=== PATIENT | female | born 1980 | race African-American/Black ===

== ENCOUNTER 2017-01-12 00:16 | Inpatient (IN) | payer MEDICAID, OTHER ==
[2017-01-12] VITALS (19 sets, daily range): BP systolic 97–131; BP diastolic 48–72; PULSE 75–116; RESP 16–20; TEMP 97.6–98.4; O2SAT 98–100
[2017-01-12] MEDS ORDERED: CITRIC ACID-SODIUM CITRATE LIQ 30 ML UDC ONE (02:49)
--- NOTE | 2017-01-12 03:08 | HHI.HP ---
HPI Chief Complaint Evaluate for induction Travel History International Travel<30 Days: No Contact w/Intl Traveler<30Days: No Known Affected Area: No History of Present Illness HPI 36-year-old 001, IUP at 40.4 care, complicated by large for gestational age, hemoglobin A1c of 6.6, late care, GBS positive Patient presents for evaluation of and possible induction of labor. She reports irregular uterine tightening but denies painful contractions. She reports that her last baby was delivered 17 years ago and was over 9 pounds. She denies any shoulder dystocia with this delivery. She reports good movement. She denies any leaking of fluid or vaginal bleeding. She denies any other concerns or complaints tonight. Weeks Gestation: 40 Para: 1 : 2 History Past Medical History Narrative Medical Denies Obstetric History Obstetric History 001 Full-term 1 Past Surgical History Narrative Surgical Denies Family History Family History: Negative Social History Alcohol Use: No Tobacco Use: No Substance Abuse: No Review of Systems Except as stated in HPI: all other systems reviewed are Neg Physical Exam Narrative GENERAL: Well-nourished, well-developed patient. SKIN: Warm and dry. HEAD: Normocephalic and atraumatic. EYES: No scleral icterus. No injection or drainage. ENT: No nasal drainage noted. Mucous membranes pink. Airway patent. NECK: Supple, trachea midline. No JVD. CARDIOVASCULAR: Regular rate and rhythm without murmurs, gallops, or rubs. RESPIRATORY: Breath sounds equal bilaterally. No accessory muscle use. BREASTS: Deferred ABDOMEN/GI: Abdomen soft, non-tender, bowel sounds present, no rebound, no guarding Gravid GENITOURINARY: External Genitalia: intact and normal in appearance. Normal BUS. No cervical or vaginal masses noted. Physiologic discharge. Grossly normal rugate. SVE 1/50/-3, posterior. FHT's: Baseline FHR of 130s with moderate long-term variability, good accelerations, no decelerations noted. This is a reactive NST/category 1 FHR tracing EXTREMITIES: No cyanosis or edema. BACK: Nontender without obvious deformity. No CVA tenderness. NEUROLOGICAL: Awake and alert. Motor and sensory grossly within normal limits. Five out of 5 muscle strength in all muscle groups. Normal speech. Psychiatric: Grossly normal memory and affect Musculoskeletal: Grossly normal range of motion, gait, muscle strength Caprini VTE Risk Assessment Caprini VTE Risk Assessment: No/Low Risk (score <= 1) Caprini Risk Assessment Model Point Value = 1 Point Value = 2 Point Value = 3 Point Value = 5 Age 41-60 Minor surgery BMI > 25 kg/m2 Swollen legs Varicose veins or History of unexplained or recurrent spontaneous Oral contraceptives or hormone replacement Sepsis (< 1 month) Serious lung disease, including pneumonia (< 1 month) Abnormal pulmonary function Acute myocardial infarction Congestive heart failure (< 1 month) History of inflammatory bowel disease Medical patient at bed rest Age 61-74 Arthroscopic surgery Major open surgery (> 45 min) Laparoscopic surgery (> 45 min) Malignancy Confined to bed (> 72 hours) Immobilizing plaster cast Central venous access Age >= 75 History of VTE Family history of VTE Factor V Leiden Prothrombin [id number] Lupus anticoagulant Anticardiolipin antibodies Elevated serum homocysteine Heparin-induced thrombocytopenia Other congenital or acquired thrombophilia Stroke (< 1 month) Elective arthroplasty Hip, pelvis, or leg fracture Acute spinal cord injury (< 1 month) Prophylaxis Regimen Total Risk Factor Score Risk Level Prophylaxis Regimen 0-1 Low Early ambulation 2 Moderate Order ONE of the following: *Sequential Compression Device (SCD) *Heparin 5000 units SQ BID 3-4 Higher Order ONE of the following medications: *Heparin 5000 units SQ TID *Enoxaparin/Lovenox 40 mg SQ daily (WT < 150 kg, CrCl > 30 mL/min) *Enoxaparin/Lovenox 30 mg SQ daily (WT < 150 kg, CrCl > 10-29 mL/min) *Enoxaparin/Lovenox 30 mg SQ BID (WT < 150 kg, CrCl > 30 mL/min) AND/OR *Sequential Compression Device (SCD) 5 or more Highest Order ONE of the following medications: *Heparin 5000 units SQ TID (Preferred with Epidurals) *Enoxaparin/Lovenox 40 mg SQ daily (WT < 150 kg, CrCl > 30 mL/min) *Enoxaparin/Lovenox 30 mg SQ daily (WT < 150 kg, CrCl > 10-29 mL/min) *Enoxaparin/Lovenox 30 mg SQ BID (WT < 150 kg, CrCl > 30 mL/min) AND *Sequential Compression Device (SCD) Assessment/Plan Assessment and Plan Assessment/plan: 1. IUP at 40.4 2. Evaluation for induction: Patient presents for a postterm evaluation for induction of labor. Of note an ultrasound performed on 01/02/17 had an estimated weight of 4011 g however was estimated to be 37 weeks 1 day which is not consistent with an estimated of 4011 g weight. A lengthy discussion with the patient regarding induction of labor and the potential risks associated with her likely gestational diabetes and a large for gestational age/macrosomic fetus. Extrapolation from this ultrasound would estimated weight of approximately 4375 g. We discussed at length the risks associated with gestational diabetes and the increased risk of shoulder dystocia as well as the recommendations for delivery with estimated weight of 4500 g and diabetes. We discussed the risks of shoulder dystocia including but not limited to permanent and irreversible neurological injury to the fetus which may include the inability to use its arm and or brain damage or even . We discussed that there are maternal risks associated as well. We discussed the risks to delivery including but not limited to pain, infection, bleeding, injury to other organs like the bladder/bowel/nerves/ vessels, injury to the baby, need for repeat operation, need for blood transfusion, need for hysterectomy, wound infection/breakdown, and other possible complications. The patient would prefer a vaginal delivery if safely possible however is if estimated weight is over 4500 g she is willing for delivery. The patient would prefer to have a reassessment of weight prior to her decision. We discussed that if she entered active labor tonight we would need to make a decision based on the best information available. We discussed that in diabetic fetuses, the shoulders/abdomen is disproportionately large comparative to the size of the head. At this point we will plan to obtain additional information in the morning and proceed with or vaginal delivery based on the additional information. All the patient's questions were answered. We also discussed that ultrasound estimation of the estimated weight has a margin for error and that she weight would not be revealed until after delivery, in which case the weight may be greater than or even less then estimated by ultrasound evaluation. Of note the patient has a previous delivery of greater than 9 pounds however she was not diabetic at that point. She denies shoulder dystocia with that delivery. 3. GBS positive: Rx penicillin if proceed with induction of labor 4. Late care 5. Probable gestational diabetes with elevated bated hemoglobin A1c of 6.6 6. well-being: Reassuring testing with reactive NST/category 1 tracing, continue monitoring Yi Martinez MD Jan 12, 2017 03:08
[2017-01-12] MEDS: LACTATED RINGER'S 1000 ML INJ 1,000 ML IV SCH ×2 (03:41→05:57)
[2017-01-12] MEDS ORDERED: SODIUM CHLORID 0.9% 500 ML INJ 500 ML IV PRN (03:45)
[2017-01-12] MEDS ORDERED: CITRIC ACID-SODIUM CITRATE LIQ 30 ML UDC PO SCH (03:45)
[2017-01-12] MEDS ORDERED: MINERAL OIL 10 ML VIAL TOPICAL PRN (03:45)
[2017-01-12] MEDS ORDERED: LIDOCAINE HCL 1% 50 ML VIAL I-DERMAL PRN (03:45)
[2017-01-12] MEDS ORDERED: OXYTOCIN 30 UNITS-500ML PREMIX 500 ML IV ONE (03:45)
[2017-01-12] MEDS ORDERED: LIDOCAINE HCL 1% 50 ML VIAL INFIL PRN (03:45)
[2017-01-12] MEDS ORDERED: ZOLPIDEM TARTRATE 5 MG TAB PO ONE (04:00)
[2017-01-12] MEDS ORDERED: SODIUM CHLOR 0.9% 1000 ML INJ 1,000 ML IV PRN (04:01)
[2017-01-12 04:03] LABS: AUTOMATED NEUTROPHIL # 4.7 TH/MM3 (1.8-7.7); BASOPHIL % 0.3 % (0.0-2.0); EOSINOPHIL % 0.3 % (0.0-4.0); HEMATOCRIT 38.1 % (35.0-46.0); HEMO FLAGS DIFF FINAL; LYMPHOCYTE # 2.1 TH/MM3 (1.0-4.8); MEAN CELL VOLUME 79.8 FL (80.0-100.0); MEAN CORPUSCULAR HEMOGLOBIN 25.3 PG (27.0-34.0); MEAN CORPUSCULAR HGB CONC 31.7 % (32.0-36.0); MONO % 9.3 % (0.0-8.0); NEUT % 62.1 % (16.0-70.0); PLATELET COUNT 197 TH/MM3 (150-450); RED BLOOD COUNT 4.77 MIL/MM3 (4.00-5.30); RED CELL DISTRIBUTION WIDTH 14.8 % (11.6-17.2); WHITE BLOOD COUNT 7.6 TH/MM3 (4.0-11.0)
[2017-01-12 04:09] LABS: BLOOD, URINE NEG (NEG); COMMENT (UR) CULT NOT INDICATED; CULTURE IF INDICATED CULT NOT INDICATED; GLUCOSE,URINE 150 mg/dL (NEG); KETONE, URINE TRACE mg/dL (NEG); MUCUS URINE FEW /lpf (OCC); NITRITE,URINE NEG (NEG); SQUAMOUS EPITHELIAL CELL URINE 13 /hpf (0-5); URINE COLOR YELLOW (YELLW/STRAW)
--- NOTE | 2017-01-12 10:42 | HHI.PR ---
Subjective Remarks 36-year-old , IUP at 40.4. Patient came in last night for evaluation of induction of labor and was admitted this morning for suspected macrosomia. A repeat ultrasound obtained this morning indicated a fetus that is likely macrosomic with significant fat tissue noted on the head, neck, and abdomen. Ultrasound images were reviewed with the feed research technician and Dr. Bryant. Of note, the abdominal circumference and femur length were too large to be calculated in the estimated weight of this ultrasound. It appears that this is a macrosomic fetus that is likely over 4500 g in an untreated diabetic mother. As such Dr. Bryant would prefer to proceed with delivery as per ACOG recommendations. I spoke with the patient and discussed ultrasound findings with the mother. All the mother initially preferred a vaginal delivery, she is agreeable to delivery as her primary goal is a healthy . We again discussed the risks of shoulder dystocia and the recommendations for primary delivery due to her diabetes and suspected macrosomia. We will proceed with delivery as an add-on today unless she enters labor sooner. Charge nurse was notified and the remainder of the team will be notified. The risks benefits and alternatives to section were discussed at length and are documented as such in the H&P. Objective I/O 01/11/17 01/11/17 01/11/17 01/12/17 01/12/17 01/12/17 07:00 15:00 23:00 07:00 15:00 23:00 Intake Total 2000 ml Balance 2000 ml Intake IV Total 2000 ml Result Diagram: 01/12/17 0052 Yi Martinez MD Jan 12, 2017 10:42
[2017-01-12] MEDS ORDERED: LACTATED RINGER'S 1000 ML INJ 2,000 ML IV ONE (12:00)
[2017-01-12] MEDS ORDERED: ONDANSETRON HCL 4 MG/2 ML VIAL IV PUSH ONE (12:00)
[2017-01-12] MEDS ORDERED: GLYCOPYRROLATE 1 MG/5 ML SYRINGE IV PUSH ONE (12:00)
[2017-01-12] MEDS ORDERED: ceFAZolin INJ 1,000 MG VIAL IV ONE (12:00)
[2017-01-12] MEDS ORDERED: MORPHINE SULFATE PF 5 MG/10 ML VIAL ONE (12:00)
[2017-01-12] MEDS ORDERED: ePHEDrine/NS 25 MG/5 ML SYR IV ONE (12:00)
[2017-01-12] MEDS ORDERED: PHENYLEPH/NS 1000 MCG/10 ML SYR IV ONE (12:00)
[2017-01-12] MEDS ORDERED: OXYTOCIN 10 UNIT/ML AMP IV ONE (12:00)
[2017-01-12] MEDS ORDERED: SODIUM CHLORIDE 0.9% 20 ML VIAL IV ONE (12:00)
[2017-01-12] MEDS: LACTATED RINGER'S 1000 ML INJ 1,000 ML IV PRN ×2 (16:00→17:30)
[2017-01-12] MEDS ORDERED: ACETAMINOPHEN 1000 MG/100 ML 100 ML IV ONE (16:22)
[2017-01-12] MEDS ORDERED: EPIDURAL-DIPHENHYDRAMINE HCL 50 MG CAP PO PRN (16:40)
[2017-01-12] MEDS ORDERED: EPIDURAL-DO NOT ADMINISTER ANTICOAGULANTS PRN (16:40)
[2017-01-12] MEDS ORDERED: EPIDURAL-NO SYSTEMIC NARCOTICS PRN (16:40)
[2017-01-12] MEDS ORDERED: EPIDURAL-NALOXONE HCL 0.4 MG/ML AMP IV PUSH PRN (16:40)
[2017-01-12] MEDS ORDERED: EPIDURAL-DIPHENHYDRAMINE HCL 50 MG/ML VIAL IV PUSH PRN (16:40)
[2017-01-12] MEDS ORDERED: ePHEDrine/NS 25 MG/5 ML SYR ONE (18:06)
[2017-01-12] MEDS ORDERED: DEXAMETHASONE SOD PHOS 4 MG/ML VIAL ONE (18:12)
[2017-01-12] MEDS ORDERED: OXYTOCIN 30 UNITS-500ML PREMIX 500 ML ONE (19:06)
[2017-01-13 00:30] VITALS: RESP 16
[2017-01-13] MEDS ORDERED: KETOROLAC TROMETHAMINE 30 MG/ML (IVP) VIAL IV PUSH PRN (00:30)
[2017-01-13] MEDS ORDERED: oxyCODONE/ACETAMINOPHEN 5 MG/325 MG TAB PO PRN (00:30)
[2017-01-13] MEDS ORDERED: ONDANSETRON HCL 4 MG/2 ML VIAL IV PUSH PRN (00:30)
[2017-01-13] MEDS: LACTATED RINGER'S 1000 ML INJ 1,000 ML IV SCH (03:41)
[2017-01-13 05:00] VITALS: RESP 16
[2017-01-13 06:15] VITALS: BP 102/59; PULSE 74; RESP 18; TEMP 98.1
--- NOTE | 2017-01-13 07:52 | HHI.OB ---
Subjective Post Operative Day: 1 Remarks doing well , keith diet , ambulating , + BF Objective Vitals/I&O Vital Signs Date Time Temp Pulse Resp B/P (MAP) Pulse Ox O2 Delivery O2 Flow Rate FiO2 01/13/17 06:15 98.1 01/13/17 06:15 74 18 102/59 (73) 01/13/17 05:00 16 01/13/17 00:30 16 01/12/17 23:40 98.4 75 18 107/60 (76) 98 01/12/17 22:00 16 01/12/17 19:35 83 18 100/59 (73) 01/12/17 19:35 98.1 98 01/12/17 19:00 84 20 103/51 (68) 100 01/12/17 18:45 97.6 105 105/53 (70) 01/12/17 18:45 18 100 01/12/17 18:30 107/55 (72) 01/12/17 18:26 93 18 97/51 (66) 98 01/12/17 18:16 113/58 (76) 01/12/17 18:10 93 18 100 01/12/17 18:10 103/59 (74) 01/12/17 17:55 114 20 110/48 (68) 100 01/12/17 17:39 97.9 100 01/12/17 17:39 116 20 109/52 (71) 01/12/17 14:30 18 01/12/17 12:20 18 01/12/17 12:19 87 131/72 (91) 01/12/17 09:33 103 122/65 (84) 01/12/17 09:32 98.0 18 Result Diagram: 01/12/17 0052 Objective Remarks GENERAL: Well-nourished, well-developed patient. CARDIOVASCULAR: Regular rate and rhythm without murmurs, gallops, or rubs. RESPIRATORY: Breath sounds equal bilaterally. No accessory muscle use. ABDOMEN/GI: Abdomen soft, non-tender, bowel sounds present. Incision: Clean, dry and intact.silver bandage intact Fundus: Firm, non-tender at umbilicus. GENITOURINARY: Light to moderate bleeding. EXTREMITIES: No cyanosis or edema, non-tender, without signs of DVT. Medications and IVs Current Medications Medications (Trade) Dose Ordered Sig/Alex Route Start Time Stop Time Status Last Admin Lactated Ringer's 1,000 ml @ 125 mls/hr Q8H IV 01/12/17 03:41 01/12/17 05:57 Lactated Ringer's 1,000 ml @ 3,000 mls/hr Q20M PRN IV 01/12/17 03:41 01/12/17 16:00 Sodium Chloride 1,000 ml @ 100 mls/hr Q10H PRN IV 01/12/17 04:01 (Xylocaine 1% Inj (50 ml)) 0.1 ml UNSCH X1 PRN I-DERMAL 01/12/17 03:45 01/15/17 03:44 (Bicitra Liq) 30 ml CENSUS TAKER PO 01/12/17 03:45 01/16/17 03:44 01/12/17 16:21 (fentaNYL INJ) 50 mcg Q1H PRN IV PUSH 01/12/17 03:45 (fentaNYL INJ) 100 mcg Q1H PRN IV PUSH 01/12/17 03:45 (Xylocaine 1% Inj (50 ml)) 10 ml UNSCH X1 PRN INFIL 01/12/17 03:45 01/14/17 03:44 (Muri-Lube Oil) 10 ml UNSCH PRN TOPICAL 01/12/17 03:45 Miscellaneous Information NO SYSTEMIC NARCOTICS TO BE GIVEN FO... UNSCH PRN .XX 01/12/17 16:40 01/13/17 16:39 (Narcan Inj) 0.4 mg UNSCH PRN IV PUSH 01/12/17 16:40 01/13/17 16:39 (Benadryl Inj) 25 mg Q6H PRN IV PUSH 01/12/17 16:40 01/13/17 16:39 (Benadryl) 50 mg Q6H PRN PO 01/12/17 16:40 01/13/17 16:39 Miscellaneous Information ALL NURSING DEPARTMENTS UNSCH PRN .XX 01/12/17 16:40 01/13/17 16:39 (Percocet 5-325 Mg) 1 tab Q4H PRN PO 01/13/17 00:30 (Percocet 5-325 Mg) 2 tab Q4H PRN PO 01/13/17 00:30 (Toradol Inj) 30 mg Q6H PRN IV PUSH 01/13/17 00:30 01/13/17 06:04 (Zofran Inj) 4 mg Q6H PRN IV PUSH 01/13/17 00:30 01/13/17 06:04 Assessment/Plan Assessment and Plan Assessment/plan: Advance postop care progressively , up OOB ambulate , advance diet Omar Bryant II, MD Jan 13, 2017 07:52
[2017-01-13 08:20] VITALS: BP 115/69; PULSE 78; RESP 18; TEMP 97.7
[2017-01-13 12:00] VITALS: BP 109/65; PULSE 83; RESP 16; TEMP 98
--- NOTE | 2017-01-13 16:39 | MP ---
cc: CHUN BRYANT MD DATE OF SURGERY: 01/12/2017. PREOPERATIVE DIAGNOSIS: Suspected macrosomia. POSTOPERATIVE DIAGNOSIS: Suspected macrosomia. OPERATION: Low transverse section. SURGEON: Chun Bryant MD. ANESTHESIA: Spinal. PREOPERATIVE NOTE: The patient is a 36-year-old black female with history of macrosomic baby in the past with ultrasound findings done on this fetus today showing excessively large amount of fat deposit in the baby's neck, chest and shoulder area with an estimated weight of 4375 grams but with this much fat deposit in the upper neck and torso it was felt the risk for shoulder dystocia was quite high and opted for transabdominal delivery. DESCRIPTION OF THE PROCEDURE IN DETAIL: The patient was taken to the operating room and placed in the supine position on the operating room table. After adequate spinal anesthesia was administered, she was prepped and draped for abdominal surgery. A Pfannenstiel incision was made in the lower abdomen and carried to the fascia, sharply the fascia was dissected off the rectus muscle and the rectus split in the midline. The peritoneal cavity was entered sharply. The incision was extended superiorly and inferiorly. The incision was stretched open. The bladder blade was placed in the lower edge of the incision. The visceral peritoneum was reflected off the lower uterine segment and placed under the bladder blade. A transverse hysterotomy was made and extended bluntly bilaterally. A female infant was delivered at 4:56 p.m. with weight 4330 grams, Apgars of 8 and 9, that is 9 pounds, 9 ounces. There were no complications of delivery. Cord blood was obtained. Placenta manually extracted. The hysterotomy was closed in a running layer of 0 chromic followed by imbricating suture of the same. The bladder was reapproximated with a running layer of 2-0 Vicryl. The uterus was elevated and blood suctioned from the cul-de-sac and gutters. The ovaries and tubes were within normal limits. The parietal peritoneum was closed in a running layer of 2-0 Vicryl. The rectus muscle was reapproximated with stick ties of chromic. The fascia was then closed in a running layer of 0 Vicryl. The subcutaneous tissue was reapproximated with 3-0 plain catgut suture and the skin closed with 3-0 Monocryl subcuticular stitch. The large silver based seven-day dressing was placed on the patient with good adhesive contact. The estimated blood loss was 500 cc. There were no complications. Sponge and needle counts were correct x 2 and the patient went to recovery in stable condition. MD JB Vallecillo/TITUS /5:43 PM /4:26 PM
[2017-01-13] MEDS: oxyCODONE/ACETAMINOPHEN 5 MG/325 MG TAB PO PRN ×2 (18:58→23:10)
[2017-01-13] MEDS ORDERED: ACETAMINOPHEN 325 MG TAB PO PRN (19:30)
[2017-01-13] MEDS ORDERED: DOCUSATE SODIUM 50 MG/SENNA 8.6 MG TAB PO PRN (19:30)
[2017-01-13] MEDS ORDERED: SIMETHICONE 80 MG CHEWABLE TAB PO PRN (19:30)
[2017-01-13] MEDS: IBUPROFEN 600 MG TAB PO PRN (23:09)
[2017-01-14] MEDS: IBUPROFEN 600 MG TAB PO PRN ×2 (08:49→15:44)
[2017-01-14] MEDS: oxyCODONE/ACETAMINOPHEN 5 MG/325 MG TAB PO PRN ×2 (08:49→15:44)
[2017-01-14 08:50] VITALS: BP 108/77; PULSE 94; RESP 18; TEMP 98
[2017-01-14] MEDS ORDERED: OXYC1TAB63 PO (10:29)
[2017-01-14] MEDS ORDERED: IBUP-232 PO (10:29)
--- NOTE | 2017-01-14 10:29 | HHI.DCPOC ---
Discharge Care Plan Diagnosis: (1) delivery, delivered, current hospitalization Report Symptoms to Your Doctor -Temperature above 100.5 degrees -Redness, of incision or excessive or foul smelling drainage -Unusual pain or calf pain -Increased vaginal bleeding -Painful or difficulty urinating -Feelings of extreme sadness or anxiety after 2 weeks Goals to Promote Your Health * To prevent worsening of your condition and complications * To maintain your health at the optimal level Directions to Meet Your Goals Take your medications as prescribed Follow your dietary instruction Follow activity as directed Ensure plenty of rest for recovery Drink fluids for hydration Keep your appointments as scheduled Take your immunizations and boosters as scheduled If your symptoms worsen call your PCP, if no PCP go to Urgent Care Center or Emergency Room Smoking is Dangerous to Your Health. Avoid second hand smoke Call the 24-hour crisis hotline for domestic abuse at Jeff Tellez MD R2 Jan 14, 2017 10:29
--- NOTE | 2017-01-14 11:37 | HHI.OB ---
Subjective Remarks 36 year old female s/p C/S at 40/4 wks gestation, POD 2. AFVSS. Patient reports she is feeling well. Bleeding is decreasing and pain is well- controlled. She is breast feeding and bonding well with baby. Ambulating without difficulties. She is tolerating a diet without nausea or vomiting. She has had a bowel movement. She has passed gas. Denies chest pain, dysuria, shortness of breath, or calf pain. (Jeff Tellez MD R2) Remarks Patient seen and evaluated with resident under direct supervision, agree with assessment and plan. (Enzo Mai MD) Objective Vitals/I&O Vital Signs Date Time Temp Pulse Resp B/P (MAP) Pulse Ox O2 Delivery O2 Flow Rate FiO2 01/14/17 08:50 94 18 108/77 (87) 01/14/17 08:50 98.0 01/13/17 12:00 98.0 83 16 109/65 (80) (Jeff Tellez MD R2) Result Diagram: 01/12/17 0052 Objective Remarks GENERAL: Well-nourished, well-developed patient. CARDIOVASCULAR: Regular rate and rhythm without murmurs, gallops, or rubs. RESPIRATORY: Breath sounds equal bilaterally. No accessory muscle use. ABDOMEN/GI: Abdomen soft, non-tender, bowel sounds present. Incision: Clean, dry and intact.silver bandage intact Fundus: Firm, non-tender at umbilicus. GENITOURINARY: Light to moderate bleeding. EXTREMITIES: No cyanosis or edema, non-tender, without signs of DVT. Medications and IVs Current Medications Medications (Trade) Dose Ordered Sig/Alex Route Start Time Stop Time Status Last Admin Lactated Ringer's 1,000 ml @ 125 mls/hr Q8H IV 01/12/17 03:41 01/12/17 05:57 Lactated Ringer's 1,000 ml @ 3,000 mls/hr Q20M PRN IV 01/12/17 03:41 01/12/17 16:00 Sodium Chloride 1,000 ml @ 100 mls/hr Q10H PRN IV 01/12/17 04:01 (Xylocaine 1% Inj (50 ml)) 0.1 ml UNSCH X1 PRN I-DERMAL 01/12/17 03:45 01/15/17 03:44 (Bicitra Liq) 30 ml LICENSED CLINICIAN PO 01/12/17 03:45 01/16/17 03:44 01/12/17 16:21 (fentaNYL INJ) 50 mcg Q1H PRN IV PUSH 01/12/17 03:45 (fentaNYL INJ) 100 mcg Q1H PRN IV PUSH 01/12/17 03:45 (Muri-Lube Oil) 10 ml UNSCH PRN TOPICAL 01/12/17 03:45 (Percocet 5-325 Mg) 1 tab Q4H PRN PO 01/13/17 00:30 01/14/17 08:49 (Percocet 5-325 Mg) 2 tab Q4H PRN PO 01/13/17 00:30 (Zofran Inj) 4 mg Q6H PRN IV PUSH 01/13/17 00:30 01/13/17 06:04 (Tylenol) 650 mg Q6H PRN PO 01/13/17 19:30 (Motrin) 600 mg Q6H PRN PO 01/13/17 19:30 01/14/17 08:49 (Mylicon Chew) 80 mg QID PRN PO 01/13/17 19:30 01/13/17 23:10 (Gricel-Colace) 2 tab Q12H PRN PO 01/13/17 19:30 01/13/17 23:05 (Jeff Tellez MD R2) Assessment/Plan Assessment and Plan 36 yo female s/p C/S, POD 2 - AFVSS - Continue routine care - Motrin and Percocet PRN pain - Encourage OOB - Pelvic rest x 6 wks. Will need 1 week incision check. - Contraception: Declines Depo and OCP; not currently in relationship and does not plan to become sexually active. [employer]GE [employer] at incision check. - Home today (Jeff Tellez MD R2) Jeff Tellez MD R2 Jan 14, 2017 11:37 Enzo Mai MD Jan 20, 2017 10:13
[2017-01-14] MEDS: LACTATED RINGER'S 1000 ML INJ 1,000 ML IV SCH (11:41)
== END 2017-01-14 17:20 | disposition home or self-care (01) | DRG 766 ==
LOC: H2EB 00:16 → H1EA 19:17
PROVIDERS: ADMIT Obstetrics & Gynecology; ATTEND Obstetrics & Gynecology
PROC: 10D00Z1 Extraction of Products of Conception, Low, Open Approach (ICD-10-PCS; principal; 2017-01-12)
DX: O36.63X0 Maternal care for excessive fetal growth, third trimester, not applicable or unspecified (principal); O48.0 Post-term pregnancy; Z37.0 Single live birth; Z3A.40 40 weeks gestation of pregnancy; O99.824 Streptococcus B carrier state complicating childbirth
CPT/HCPCS: 59025; 76816; 76819; 81001; 85025; 86900; 86901; J0131; J0690; J1100; J1885; J2274; J2370; J2405; J2590; J7120

== ENCOUNTER 2017-01-16 18:13 | Emergency (ER) | payer MEDICAID, OTHER ==
[~2017-01-16] VITALS: Ht 172.7 cm; Wt 100.0 kg
[~2017-01-16 18:13] MED LIST: IBUP-232 PO; OXYC1TAB63 PO
[2017-01-16 18:15] VITALS: BP 131/63; PULSE 80; RESP 18; TEMP 99.2; O2SAT 99
[2017-01-16 20:00] VITALS: BP 135/77; PULSE 62; RESP 16; O2SAT 99
--- NOTE | 2017-01-16 20:28 | PD ---
HPI Chief Complaint: Numbness/Tingling Time Seen by Provider: 20:16 Travel History International Travel<30 days: No Contact w/Intl Traveler<30days: No Traveled to known affect area: No History of Present Illness HPI 36-year-old Afro-[place] female presents to the emergency Department 5 days post of her second with complaints of bilateral lower extremity edema with some tingling in the right foot. Patient denies fever, chills, shortness of breath, cough, or significant abdominal pain. Patient does feel she is a little constipated, but otherwise feels normal and the abdomen. She states she is eating well. Patient is currently breast-feeding her daughter. Patient denies any significant pain in the lower extremities. Patient has no history of edema in the past. Patient had no swelling with either. She has no known drug allergies. PFSH Past Medical History Medical History: Denies Significant Hx ?: Not Past Surgical History Surgical History: No Previous Surgery Section: Yes Social History Alcohol Use: No Tobacco Use: No Substance Use: No Allergies-Medications (Allergen,Severity, Reaction): Coded Allergies: No Known Allergies (Verified Allergy, Unknown, 01/16/17) Reported Meds & Prescriptions Reported Meds & Active Scripts Active Ibuprofen 600 Mg Tab 600 Mg PO Q6H PRN Oxycodone-Acetaminophen 5-325 mg Tab 1 Tab PO Q4H PRN Review of Systems Except as stated in HPI: all other systems reviewed are Neg Musculoskeletal: Positive: Edema, No: Myalgias, Arthralgias, Limited ROM, Weakness, Cramping, Pain Neurologic: Positive: Paresthesia (of the right foot) Physical Exam Narrative GENERAL: Patient appears in no acute distress. SKIN: Warm and dry. Normal color. Normal turgor. wound appears healing well without dehiscence or drainage. No signs of cellulitis noted. HEAD: Atraumatic. Normocephalic. EYES: Pupils equal and round. No scleral icterus. No injection or drainage. ENT: No nasal bleeding or discharge. Mucous membranes pink and moist. Pharynx is clear. Airway is patent. NECK: Trachea midline. No JVD. Neck is supple and nontender. CARDIOVASCULAR: Regular rate and rhythm. No murmurs gallops or rubs. RESPIRATORY: No accessory muscle use. Clear to auscultation. Breath sounds equal bilaterally. GASTROINTESTINAL: Abdomen soft, mild suprapubic tenderness at the incision site , nondistended. Normal bowel sounds are noted throughout all quadrants. No CVA tenderness. Hepatic and splenic margins not palpable. MUSCULOSKELETAL: Extremities without clubbing, cyanosis, however, patient has 2 + bilateral nonpitting edema. No obvious deformities. NEUROLOGICAL: Awake and alert. No obvious cranial nerve deficits. Motor grossly within normal limits. Five out of 5 muscle strength in the arms and legs. Normal speech. PSYCHIATRIC: Appropriate mood and affect; insight and judgment normal. Data Data Last Documented VS Vital Signs Date Time Temp Pulse Resp B/P (MAP) Pulse Ox O2 Delivery O2 Flow Rate FiO2 01/16/17 20:15 99 Room Air 01/16/17 20:00 62 16 135/77 (96) 01/16/17 18:15 99.2 Orders Orders Electrocardiogram (01/16/17 20:29) B-Type Natriuretic Peptide (01/16/17 20:29) Complete Blood Count With Diff (01/16/17 20:29) Comprehensive Metabolic Panel (01/16/17 20:29) Prothrombin Time / Inr (Pt) (01/16/17 20:29) Act Partial Throm Time (Ptt) (01/16/17 20:29) Chest, Single Ap (01/16/17 20:29) Ecg Monitoring (01/16/17 20:29) Iv Access Insert/Monitor (01/16/17 20:29) Oximetry (01/16/17 20:29) Oxygen Administration (01/16/17 20:29) Sodium Chloride 0.9% Flush (Ns Flush) (01/16/17 20:30) Us Leg Venous Doppler Bilat (01/16/17 20:29) Labs Laboratory Tests Test 01/16/17 20:30 White Blood Count 7.8 TH/MM3 Red Blood Count 3.72 MIL/MM3 Hemoglobin 9.5 GM/DL Hematocrit 29.6 % Mean Corpuscular Volume 79.7 FL Mean Corpuscular Hemoglobin 25.6 PG Mean Corpuscular Hemoglobin Concent 32.1 % Red Cell Distribution Width 14.4 % Platelet Count 286 TH/MM3 Mean Platelet Volume 8.6 FL Neutrophils (%) (Auto) 57.8 % Lymphocytes (%) (Auto) 31.9 % Monocytes (%) (Auto) 5.0 % Eosinophils (%) (Auto) 4.4 % Basophils (%) (Auto) 0.9 % Neutrophils # (Auto) 4.5 TH/MM3 Lymphocytes # (Auto) 2.5 TH/MM3 Monocytes # (Auto) 0.4 TH/MM3 Eosinophils # (Auto) 0.3 TH/MM3 Basophils # (Auto) 0.1 TH/MM3 CBC Comment DIFF FINAL Differential Comment Prothrombin Time 9.7 SEC Prothromb Time International Ratio 0.9 RATIO Activated Partial Thromboplast Time 28.4 SEC Blood Urea Nitrogen 8 MG/DL Creatinine 0.93 MG/DL Random Glucose 81 MG/DL Total Protein 6.2 GM/DL Albumin 2.4 GM/DL Calcium Level 8.3 MG/DL Alkaline Phosphatase 85 U/L Aspartate Amino Transf (AST/SGOT) 42 U/L Alanine Aminotransferase (ALT/SGPT) 49 U/L Total Bilirubin 0.5 MG/DL Sodium Level 141 MEQ/L Potassium Level 3.5 MEQ/L Chloride Level 106 MEQ/L Carbon Dioxide Level 25.5 MEQ/L Anion Gap 10 MEQ/L Estimat Glomerular Filtration Rate 83 ML/MIN B-Type Natriuretic Peptide 176 PG/ML [facility] Medical Decision Making Medical Screen Exam Complete: Yes Emergency Medical Condition: Yes Medical Record Reviewed: Yes Differential Diagnosis Lower extremity edema. DVT. Fluid overload. 5 days . Narrative Course Patient appears medically stable at time of exam. Labs ordered including CBC, CMP, proBNP, urinalysis. EKG and chest x-ray are ordered. Ultrasound both lower extremities is ordered. CBC shows mild anemia with a hemoglobin of 9.5 otherwise unremarkable. Coagulation studies are unremarkable except for a PT of 9.7. CMP is unremarkable except for total protein of 6.2 and albumin of 2.4. BNP is 176. Chest x-ray was unremarkable per radiologist. Ultrasound lower extremities shows no DVT. Patient was treated with Lasix 10 mg daily for the next 7 days. Patient should follow-up with her primary care physician or [facility] next 3 days to ensure improvement. Recommend stool softener for constipation. Patient can follow up with worsening symptoms develop as needed. Diagnosis Primary Impression: Bilateral edema of lower extremity Referrals: Primary Care Physician 3 days Patient Instructions: General Instructions, Leg Edema (ED) Additional Instructions: CBC shows mild anemia with a hemoglobin of 9.5 otherwise unremarkable. Coagulation studies are unremarkable except for a PT of 9.7. CMP is unremarkable except for total protein of 6.2 and albumin of 2.4. BNP is 176. Chest x-ray was unremarkable per radiologist. Ultrasound lower extremities shows no DVT. Patient was treated with Lasix 10 mg daily for the next 7 days. Patient should follow-up with her primary care physician or [facility] next 3 days to ensure improvement. Recommend stool softener for constipation. Patient can follow up with worsening symptoms develop as needed. Med/Other Pt SpecificInfo: Prescription(s) given Disposition: 01 DISCHARGE HOME Condition: Stable Mario Navarro Jan 16, 2017 20:28
[2017-01-16] MEDS ORDERED: SODIUM CHLORIDE 0.9% FLUSH 10 ML FLUSH IVF PRN (20:30)
[2017-01-16 20:52] LABS: AUTOMATED NEUTROPHIL # 4.5 TH/MM3 (1.8-7.7); BASOPHIL # 0.1 TH/MM3 (0-0.2); BASOPHIL % 0.9 % (0.0-2.0); EOSINOPHIL # 0.3 TH/MM3 (0-0.4); EOSINOPHIL % 4.4 % (0.0-4.0); HEMATOCRIT 29.6 % (35.0-46.0); HEMO FLAGS DIFF FINAL; LYMPH % 31.9 % (9.0-44.0); LYMPHOCYTE # 2.5 TH/MM3 (1.0-4.8); MEAN CELL VOLUME 79.7 FL (80.0-100.0); MEAN CORPUSCULAR HEMOGLOBIN 25.6 PG (27.0-34.0); MEAN CORPUSCULAR HGB CONC 32.1 % (32.0-36.0); NEUT % 57.8 % (16.0-70.0); PLATELET COUNT 286 TH/MM3 (150-450); RED BLOOD COUNT 3.72 MIL/MM3 (4.00-5.30); RED CELL DISTRIBUTION WIDTH 14.4 % (11.6-17.2); WHITE BLOOD COUNT 7.8 TH/MM3 (4.0-11.0)
[2017-01-16 21:13] LABS: ALT (GPT) 49 U/L (10-53); ANION GAP 10 MEQ/L (5-15); AST (GOT) 42 U/L (15-37); BICARBONATE 25.5 MEQ/L (21.0-32.0); BLOOD UREA NITROGEN 8 MG/DL (7-18); CHLORIDE 106 MEQ/L (98-107); GLOMERULAR FILTRATION RATE 83 ML/MIN (>89); POTASSIUM 3.5 MEQ/L (3.5-5.1); SODIUM (NA) 141 MEQ/L (136-145)
[2017-01-16 21:16] LABS: ALKALINE PHOSPHATASE 85 U/L (45-117); TOTAL BILIRUBIN ADULT 0.5 MG/DL (0.2-1.0)
--- NOTE | 2017-01-16 21:31 | RADRPT ---
EXAM DATE/TIME: 01/16/2017 20:34 [facility] COMPARISON: No previous studies available for comparison. INDICATIONS : Pain in chest and swelling in legs. MEDICAL HISTORY : None. SURGICAL HISTORY : None. ENCOUNTER: Initial ACUITY: 1 day PAIN SCORE: 0/10 LOCATION: Bilateral chest FINDINGS: A single view of the chest demonstrates the lungs to be symmetrically aerated without evidence of mas s, infiltrate or effusion. The cardiomediastinal contours are unremarkable. Osseous structures are intact. CONCLUSION: No acute disease. Jose Antonio Jane MD on January 16, 2017 at 21:29 Board Certified Radiologist. This report was verified electronically.
[2017-01-16 21:34] LABS: APTT (PATIENT) 28.4 SEC (24.3-30.1); INTERNATIONAL NORMALIZED RATIO 0.9 RATIO; PROTHROMBIN TIME - PATIENT 9.7 SEC (9.8-11.6)
--- NOTE | 2017-01-16 22:09 | RADRPT ---
EXAM DATE/TIME: 01/16/2017 20:44 [facility] COMPARISON: No previous studies available for comparison. INDICATIONS : Bilateral leg swelling. MEDICAL HISTORY : Post 5 days. Bilateral leg swelling. SURGICAL HISTORY : section. ENCOUNTER: Initial ACUITY: 4 - 6 days PAIN SCORE: 2/10 LOCATION: Bilateral leg. TECHNIQUE: Venous ultrasound of the left and right leg was performed from the inguinal ligament to the proximal calf. Real-time, color Doppler and spectral tracing, compression and augmentation techniques were us ed. FINDINGS: RIGHT LEG: There is normal compressibility of the deep venous system from the inguinal region to the proximal ca lf. No echogenic clot is seen in the lumen of the common femoral, femoral, popliteal, and posterior tibial veins. There is a normal response of the venous system to proximal and distal augmentation an d respiration. LEFT LEG: There is normal compressibility of the deep venous system from the inguinal region to the proximal ca lf. No echogenic clot is seen in the lumen of the common femoral, femoral, popliteal, and posterior tibial veins. There is a normal response of the venous system to proximal and distal augmentation an d respiration. CONCLUSION: No DVT. Jose Antonio Jane MD on January 16, 2017 at 22:06 Board Certified Radiologist. This report was verified electronically.
[2017-01-16] MEDS ORDERED: FUROSEMIDE 20 MG TAB PO ONE (22:15)
[2017-01-16] MEDS ORDERED: FURO20TA PO (22:15)
[2017-01-16 22:31] VITALS: BP 136/89
--- NOTE | 2017-01-17 10:18 | EKG ---
Date Performed: 01/16/2017 Time Performed: 20:54:15 PTAGE: 36 years EKG: Sinus rhythm LOW QRS VOLTAGE IN PRECORDIAL LEADS BORDERLINE ECG NO PREVIOUS TRACING DOCTOR: Enzo Arias Interpretating Date/Time 01/17/2017 10:17:54
== END 2017-01-16 22:38 | disposition home or self-care (01) ==
LOC: NEPE 18:13
DX: R60.0 Localized edema (principal); R20.2 Paresthesia of skin; R94.31 Abnormal electrocardiogram [ECG] [EKG]
CPT/HCPCS: 71010; 80053; 83880; 85025; 85610; 85730; 93005; 93970

== ENCOUNTER 2017-04-14 13:30 | Emergency (ER) | payer SELFPAY ==
[~2017-04-14] VITALS: Ht 170.2 cm; Wt 91.0 kg
[~2017-04-14 13:30] MED LIST changes: +FURO20TA PO
[2017-04-14 13:31] VITALS: BP 126/71; PULSE 96; RESP 18; TEMP 99.5; O2SAT 99
--- NOTE | 2017-04-14 14:18 | PD ---
HPI Chief Complaint: Medical Clearance Time Seen by Provider: 13:55 Travel History International Travel<30 days: No Contact w/Intl Traveler<30days: No Traveled to known affect area: No History of Present Illness HPI 37-year-old Afro-[place] female presents the emergency department with reports of headaches, difficulty sleeping, and depression. Patient is 2 months . Patient is a beautiful 2-month-old little girl. Patient is currently breast-feeding and does not currently have a job or medical insurance. Patient denies suicidal or homicidal ideation. She is getting money from her family that lives in [place]. Patient is trying to get back to [place] at this time. She is here with a local friend who is very supportive. Patient states that recently her blood pressure has been elevated and she was concerned this may be causing her headaches. Patient states she has been crying a lot which may be causing her headaches as well. She states she has not been eating that well but is trying to take the best care of her baby is possible. The patient's baby's father is not in the picture at this time. Patient denies any other significant medical issues at this time. She has no known drug allergies. PFSH Past Medical History Cardiovascular Problems: Yes Diabetes: Yes ?: Not LMP: 04/13/17 Past Surgical History Section: Yes Social History Alcohol Use: No Tobacco Use: No Substance Use: No Allergies-Medications (Allergen,Severity, Reaction): Coded Allergies: No Known Allergies (Verified , 04/14/17) Reported Meds & Prescriptions Reported Meds & Active Scripts Active Furosemide 20 Mg Tab 10 Mg PO DAILY 7 Days Ibuprofen 600 Mg Tab 600 Mg PO Q6H PRN Oxycodone-Acetaminophen 5-325 mg Tab 1 Tab PO Q4H PRN Review of Systems Except as stated in HPI: all other systems reviewed are Neg General / Constitutional: No: Fever Eyes: No: Visual changes HENT: No: Headaches Cardiovascular: No: Chest Pain or Discomfort Respiratory: No: Shortness of Breath Gastrointestinal: No: Abdominal Pain Genitourinary: No: Dysuria Musculoskeletal: No: Pain Skin: No Rash Neurologic: No: Weakness Psychiatric: Positive: Depression, No: Suicidal Ideations, Mood Disorder, Substance Abuse, Homicidal Ideation Endocrine: No: Polydipsia Hematologic/Lymphatic: No: Easy Bruising Physical Exam Narrative GENERAL: Patient is in no acute distress. Vital signs are stable. SKIN: Warm and dry. Color. Normal turgor. HEAD: Atraumatic. Normocephalic. EYES: Pupils equal and round. No scleral icterus. No injection or drainage. ENT: No nasal bleeding or discharge. Mucous membranes pink and moist. NECK: Trachea midline. No JVD. CARDIOVASCULAR: Regular rate and rhythm. RESPIRATORY: No accessory muscle use. Clear to auscultation. Breath sounds equal bilaterally. GASTROINTESTINAL: Abdomen soft, non-tender, nondistended. Hepatic and splenic margins not palpable. MUSCULOSKELETAL: Extremities without clubbing, cyanosis, or edema. No obvious deformities. NEUROLOGICAL: Awake and alert. No obvious cranial nerve deficits. Motor grossly within normal limits. Five out of 5 muscle strength in the arms and legs. Normal speech. PSYCHIATRIC: Appropriate mood and affect; insight and judgment normal. Data Data Last Documented VS Vital Signs Date Time Temp Pulse Resp B/P (MAP) Pulse Ox O2 Delivery O2 Flow Rate FiO2 04/14/17 13:31 99.5 96 18 126/71 (89) 99 Room Air MDM Medical Decision Making Medical Screen Exam Complete: Yes Emergency Medical Condition: Yes Differential Diagnosis . Depression. Life stressors. Stress reaction. Narrative Course Had a long discussion with the patient in terms of having to take care of herself she can take care of her baby. Patient is adamant that she is not suicidal or homicidal at this time. A medical screening exam was performed: At the time of evaluation the presenting medical condition was determined not to be of an emergent nature. The patient was given the option of receiving additional care, but declined. Patient was given options for additional community resources from which to obtain care. The Patient Has Been advised to seek medical attention for their presenting complaint. The patient has been advised to return to the ER at any time if an emergent condition develops. Disposition: 01 DISCHARGE HOME Condition: Stable Mario Navarro Apr 14, 2017 14:18
== END 2017-04-14 14:30 | disposition left against medical advice (07) ==
LOC: NEPD 13:30
DX: R51 Headache (principal)
CPT/HCPCS: 99281